=== PATIENT | female | born 1955 | race Caucasian/White ===

== ENCOUNTER → 2023-09-23 | Outpatient (REF) | payer MEDICARE, SELFPAY | LOC: DHSLP | PROVIDERS: ATTENDING PHYSICIAN Internal Medicine; FAMILY PHYSICIAN Family Medicine | DX: G47.33 Obstructive sleep apnea (adult) (pediatric) (principal) | CPT/HCPCS: 95800 ==

== ENCOUNTER → 2024-04-12 06:13 | Day surgery (SDC) | payer MEDICARE, SELFPAY | LOC: GI 06:13 | PROVIDERS: ATTENDING PHYSICIAN Internal Medicine Gastroenterology | DX: Z12.11 Encounter for screening for malignant neoplasm of colon (principal); D12.2 Benign neoplasm of ascending colon; D12.3 Benign neoplasm of transverse colon; K64.8 Other hemorrhoids; K29.50 Unspecified chronic gastritis without bleeding; K44.9 Diaphragmatic hernia without obstruction or gangrene; K31.7 Polyp of stomach and duodenum; K31.89 Other diseases of stomach and duodenum; R10.13 Epigastric pain; Z86.010 Personal history of colon polyps | CPT/HCPCS: 45380; 43239; 88305; 88342 ==

== ENCOUNTER → 2024-07-23 11:13 | Outpatient (REF) | payer MEDICARE, SELFPAY | LOC: WDC 11:13 | PROVIDERS: ATTENDING PHYSICIAN Obstetrics & Gynecology; FAMILY PHYSICIAN Family Medicine | DX: Z12.31 Encounter for screening mammogram for malignant neoplasm of breast (principal) | CPT/HCPCS: 77063; 77067 ==

== ENCOUNTER 2024-09-05 05:58 | Day surgery (SDC) | payer MEDICARE, SELFPAY ==
[2024-08-17 14:04] VITALS: BMI 34.0
[2024-08-17 14:26] LABS: Hematocrit 41.7 % (37.0-47.0); Mean Corp Hgb Conc. 33.6 g/dL (33.0-37.0); Mean Corpuscular Hgb 29.8 pg (27.0-31.0); Mean Corpuscular Volume 88.7 fL (81.0-99.0); Platelet Count 175 10^3/uL (130-400); White Blood Cell Count 6.3 10^3/uL (4.8-10.8)
[2024-08-17 14:41] LABS: ALT (SGPT) 30 U/L (0-35); AST (SGOT) 27 U/L (14-36); Albumin 4.2 g/dl (3.5-5.0); Alkaline Phosphatase 103 U/L (38-126); Blood Urea Nitrogen 18 mg/dl (7-17); Calcium 9.5 mg/dl (8.4-10.2); Carbon Dioxide 28 mmol/L (22-30); Chloride 100 mmol/L (98-107); Estimated Creatinine Clearance 56 ml/min; Glucose 102 mg/dl (70-99); Potassium 3.9 mmol/L (3.5-5.1); Sodium 139 mmol/L (135-145); Total Bilirubin 0.6 mg/dl (0.2-1.3); Total Protein 6.9 g/dl (6.3-8.2); eGFR 55.07
[2024-08-18 08:57] LABS: Glycohemoglobin (HgbA1c) 5.6 % (4.0-5.6)
--- NOTE | 2024-08-22 11:50 | VNURNOTE ---
Patient is scheduled for an elective L TKA on 09/05/24- She is a same day patient with Dr Ríos. Spoke with patient prior to surgery. Introduced role of [facility] Liaison. Patient reports that she lives with her spouse in a MULTI story home.
There is 1 step to enter and a flight of steps to the second floor.
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 She has a raised toilet seat, cane and rolling walker, shower seat, gel pack, DVT proph machine.
She had [facility] services after prior TKR and was same day surgery.
PCP is Dr Babcock.
Discussed [facility] joint protocol and post surgical plans.
Reviewed that she will have [facility] services initially and will then start outpatient PT.
Patient selects [facility] for home care needs and [facility]. Scheduled for 2/3.
Patient is in agreement with plan and states that her spouse will be home with him. Advised to bring RW day of surgery. [facility].
Plan: [facility] per [facility] joint protocol 09/05 then outpt PT on 2
--- NOTE | 2024-08-30 09:42 | PTCARENOTE ---
Patients 08/17 GFR- 55.07- Ewa @ Dr. Sewell office notified
[2024-08-30 13:16] VITALS: BMI 34.0
[2024-09-05] VITALS (12 sets, daily range): BP systolic 89–145; BP diastolic 62–92
[2024-09-05] MEDS: CELEBREX 200 MG PO (06:16)
[2024-09-05] MEDS: TYLENOL 650 MG PO (06:17)
[2024-09-05] MEDS: NORMOSOL-R/PLASMALYTE-A 1000 IV ×2 (06:32→09:45)
--- NOTE | 2024-09-05 07:58 | W.DS.TRANS ---
DC Summary - Kitchen Worker
-
Discharge Instructions:
Discharge Diagnosis/Procedures L TKA 09/05/24
Diet Regular
Activity With Walker
Driving Restrictions No driving
Bathing Restrictions OK to Shower
Other Services PT
Instructions:
Stand-Alone Forms: SDS Total Hip and Knee D/C
Changes to Home Medications: Yes
Discharge Medications:
DC Medications w/original date entered in [employer] [facility]
atorvastatin 10 mg tablet 10 mg PO HS 08/16/18
cholecalciferol (vitamin D3) 50 mcg (2,000 unit) capsule (Vitamin D3) 50 mcg PO HS 03/11/20
famotidine 40 mg tablet 40 mg PO HS 03/11/20
estradiol 0.01% (0.1 mg/gram) vaginal cream 1 applic vaginal MOFR 04/07/21
amlodipine 5 mg tablet (Norvasc) 5 mg PO DAILY ##0 05/06/21
aluminum hydrox-magnesium carb 160 mg-105 mg chewable tablet (Gaviscon Extra Strength) 2 - 4 tab PO PRN PRN GERD 08/30/24
calcium 600 mg-D3 800 unit-mag 40 on-dubu-zmdj-megan-boron chew tablet (Caltrate 600-D Plus Minerals) 1 tab PO HS 08/30/24
guar gum 1 tbsp PO DAILY 08/30/24
metoprolol succinate 50 mg tablet,extended release 24 hr 50 mg PO BID 08/30/24
multivitamin with minerals-folic acid 200 mcg chewable tablet (Multivitamin Gummies) 2 tab PO HS 08/30/24
omeprazole 40 mg capsule,delayed release 40 mg PO DAILY 08/30/24
Saccharomyces boulardii 250 mg capsule (Florastor) 250 mg PO BID #1 cap 09/05/24
acetaminophen 500 mg tablet (Tylenol Extra Strength) 500 - 1,000 mg (1 - 2 x 500 mg) PO QID #0 tabs 09/05/24
apixaban 5 mg tablet (Eliquis) 2.5 mg (1/2 x 5 mg) PO BID Blood clot prevention/tx/afib #0 tabs 09/05/24
cefadroxil 500 mg capsule 500 mg PO BID infection prevention #14 caps 09/05/24
dexamethasone 4 mg tablet 4 mg PO BID inflammation #6 tabs 09/05/24
docusate sodium 100 mg capsule (Colace) 100 mg PO BID stool softner #1 cap 09/05/24
magnesium hydroxide 400 mg/5 mL oral suspension (Milk of Magnesia) 30 ml PO HS PRN Constipation #1 mL 09/05/24
ondansetron 4 mg disintegrating tablet 4 mg PO Q6H PRN n/v #20 tabs 09/05/24
oxycodone 5 mg tablet 5 mg PO Q6H PRN 1 tab moderate pain, 2 tabs severe pain #30 tabs 09/05/24
sennosides 8.6 mg tablet (Senokot) 17.2 mg (2 x 8.6 mg) PO BID laxative #2 tabs 09/05/24
Home Medication Changes
Saccharomyces boulardii 250 mg capsule (Florastor) 250 mg PO BID #1 cap 09/05/24
acetaminophen 500 mg tablet (Tylenol Extra Strength) 500 - 1,000 mg (1 - 2 x 500 mg) PO QID #0 tabs 09/05/24
apixaban 5 mg tablet (Eliquis) 2.5 mg (1/2 x 5 mg) PO BID Blood clot prevention/tx/afib #0 tabs 09/05/24
cefadroxil 500 mg capsule 500 mg PO BID infection prevention #14 caps 09/05/24
dexamethasone 4 mg tablet 4 mg PO BID inflammation #6 tabs 09/05/24
docusate sodium 100 mg capsule (Colace) 100 mg PO BID stool softner #1 cap 09/05/24
magnesium hydroxide 400 mg/5 mL oral suspension (Milk of Magnesia) 30 ml PO HS PRN Constipation #1 mL 09/05/24
ondansetron 4 mg disintegrating tablet 4 mg PO Q6H PRN n/v #20 tabs 09/05/24
oxycodone 5 mg tablet 5 mg PO Q6H PRN 1 tab moderate pain, 2 tabs severe pain #30 tabs 09/05/24
sennosides 8.6 mg tablet (Senokot) 17.2 mg (2 x 8.6 mg) PO BID laxative #2 tabs 09/05/24
Pending Results: No
[2024-09-05] MEDS: ANCEF 5 IV (10:58)
[2024-09-05] MEDS: TYLENOL 1000 MG PO (12:09)
== END 2024-09-05 12:47 | disposition home or self-care (01) ==
LOC: SDS 05:58
PROVIDERS: ATTENDING PHYSICIAN Orthopaedic Surgery; FAMILY PHYSICIAN Family Medicine; REFERRING PHYSICIAN Internal Medicine Cardiovascular Disease
PROC: 0SRD0J9 Replacement of Left Knee Joint with Synthetic Substitute, Cemented, Open Approach (ICD-10-PCS; 2024-09-05)
DX: M17.12 Unilateral primary osteoarthritis, left knee (principal); Z88.0 Allergy status to penicillin
CPT/HCPCS: 27447; 36415; 73560; 80053; 83036; 85027; 87070; 97162; C1713; C1776

== ENCOUNTER 2024-10-04 08:53 | Outpatient (RCR) | payer MEDICARE, SELFPAY | END 2024-10-04 23:59 | disposition home or self-care (01) | LOC: RPT 08:53 | PROVIDERS: ATTENDING PHYSICIAN Orthopaedic Surgery; FAMILY PHYSICIAN Family Medicine | DX: Z47.1 Aftercare following joint replacement surgery (principal); Z96.652 Presence of left artificial knee joint; M17.12 Unilateral primary osteoarthritis, left knee; M25.562 Pain in left knee; Z73.6 Limitation of activities due to disability | CPT/HCPCS: 97010; 97110; 97140; 97162; 97530 ==

== ENCOUNTER 2024-11-01 10:53 | Outpatient (RCR) | payer MEDICARE, SELFPAY | END 2024-11-01 23:59 | disposition home or self-care (01) | LOC: RPT 10:53 | PROVIDERS: ATTENDING PHYSICIAN Orthopaedic Surgery; FAMILY PHYSICIAN Family Medicine | DX: Z47.1 Aftercare following joint replacement surgery (principal); Z96.652 Presence of left artificial knee joint; M25.562 Pain in left knee; M17.12 Unilateral primary osteoarthritis, left knee; Z73.6 Limitation of activities due to disability | CPT/HCPCS: 97010; 97110; 97140; 97530 ==

== ENCOUNTER 2024-11-08 10:48 | Outpatient (RCR) | payer MEDICARE, SELFPAY | END 2024-11-08 12:53 | disposition home or self-care (01) | LOC: RPT 10:48 | PROVIDERS: ATTENDING PHYSICIAN Orthopaedic Surgery; FAMILY PHYSICIAN Family Medicine | DX: Z47.1 Aftercare following joint replacement surgery (principal); Z96.652 Presence of left artificial knee joint; M25.562 Pain in left knee; M17.12 Unilateral primary osteoarthritis, left knee; Z73.6 Limitation of activities due to disability | CPT/HCPCS: 97010; 97110; 97530 ==